=== PATIENT | male | born 1945 | race Caucasian/White ===

== ENCOUNTER → 2025-04-22 13:17 | Outpatient (BNVA) | payer MEDICARE, SELFPAY | PROVIDERS: Visit Provider Orthopaedic Surgery | DX: M54.50 Low back pain, unspecified (principal); Z01.818 Encounter for other preprocedural examination; M54.9 Dorsalgia, unspecified; G89.29 Other chronic pain; Z76.89 Persons encountering health services in other specified circumstances; Z95.0 Presence of cardiac pacemaker; R94.31 Abnormal electrocardiogram [ECG] [EKG] | CPT/HCPCS: 72110; 80053; 81003; 85025; 93005; 99204 ==